=== PATIENT | female | born 1990 | race Caucasian/White ===

== ENCOUNTER 2021-12-20 17:08 | Inpatient (IN) ==
[2021-12-20 17:56] LABS: Basophils # (auto) 0.06 K/uL (0-0.2); Basophils % (auto) 0.7 %; Eosinophils % (auto) 1.1 %; Hematocrit (blood only) 45.1 % (34.1-44.9); Hemoglobin 15.3 g/dl (12.0-16.0); Immature Granulocytes # (auto) 0.08 K/uL (0.00-0.02); Immature Granulocytes % (auto) 0.9 %; Lymphocytes # (auto) 1.69 K/uL (1.2-3.4); Lymphocytes % (auto) 18.8 %; Mean Corpuscular Hemoglobin 30.2 pg (25.0-34.0); Mean Corpuscular Hgb Conc 33.9 g/dL (32.0-36.0); Mean Platelet Volume 9.4 fL (9.4-12.3); Monocytes % (auto) 4.5 %; Neutrophils # (auto) 6.64 K/uL (1.4-6.5); Platelet Count 339 K/uL (130-400); RDW Coefficient of Variation 12.3 % (11.5-14.5); RDW Standard Deviation 39.9 fL (36.4-46.3); Red Blood Count 5.07 M/uL (3.93-5.22); White Blood Count 8.97 K/ul (4.8-10.8)
[2021-12-20 17:57] LABS: Appearance Urine Clear (Clear); Bilirubin Urine Negative (Negative); Blood Urine Negative (Negative); Color Urine Yellow; Glucose Urine UA Negative (Negative); Ketones Urine Negative (Negative); Leukocyte Esterase Urine Negative (Negative); Nitrite Urine Negative (Negative); Protein Urine Negative (Negative); Specific Gravity Urine 1.012 (1.000-1.030); Urobilinogen Urine Negative (Negative)
[2021-12-20] MEDS ORDERED: LORazepam 1 MG TAB SL STA (18:14)
--- NOTE | 2021-12-20 18:14 | Emergency Department Note ---
Impression & Plan Mood disorder, Suicidal ideation, Alcohol abuse ED Provider Note NAME: KALPANA ZEE AGE: 31 SEX: F : 1990 ARRIVES VIA: Walk-In INFORMANT: Patient ED PROVIDER(S): Waylon Peguero DO CHIEF COMPLAINT: SI HPI: Patient is a 31-year-old female who presents to ER the ER for suicidal ideations with a plan to overdose on medications to kill her self. Patient notes that she has been having worsening mental status for the past 2 weeks. 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 She does have a history of bipolar disorder. She is taking her medications. She drinks 8 beers on Sunday. During the week for the past 2 weeks she has been having about 2-3 beers a day otherwise. No other exacerbating or remitting factors. She does want to come in for help. ROS: See above HPI for pertinent positives & negatives. A total of 10 systems reviewed and were otherwise negative. PAST MEDICAL HISTORY:See Below PAST SURGICAL HISTORY:See Below FAMILY HISTORY:See Below SOCIAL HISTORY:See Below HOME MEDICATIONS:See Below ALLERGIES:See Below VITALS:See Below PHYSICAL EXAMINATION: GENERAL: Sitting up in bed, alert, well appearing, well nourished, no distress, non-toxic EYE EXAM: normal conjunctiva. OROPHARYNX: no exudate, no erythema, lips, buccal mucosa, and tongue normal and mucous membranes are moist NECK: supple, no nuchal rigidity, no adenopathy, non-tender LUNGS: Clear to auscultation. Normal chest wall mechanics HEART: no murmurs, S1 normal and S2 normal ABDOMEN: abdomen soft, non-tender, normo-active bowel sounds, no masses, no rebound or guarding. UPPER EXTREMITIES: upper extremities are grossly normal. LOWER EXTREMITIES: No pitting edema. NEURO EXAM: Normal sensorium, cranial nerves II-XII grossly intact, normal speech, no gross weakness of arms, no gross weakness of legs. PSYCH: Admits to suicidal ideations with a plan to overdose MEDICAL DECISION MAKING: Patient is a 31-year-old female who presents ER for suicidal ideations with a plan to kill her self. CBC along with BMP was obtained and was unremarkable. LFTs bilirubin and TSH was unremarkable. UA was clean. was negative. Tox was negative. Alcohol was negative. COVID was negative. Patient was given oral Ativan. Updated bedside patient was admitted to [address] 201 with suicidal ideations. Triage Nursing notes reviewed. Limited review of prior medical records performed Vital Signs: reviewed and remarkable for HTN Differential diagnosis: Mood disorder, infection, hypoglycemia, electrolyte abnormalities, cardiac sources, intracerebral event, toxicologic, trauma, neurologic, as well as other pathologies. ER treatment provided: See below Diagnostics interpreted by me: ECG: none Cardiac Monitoring: An order was placed for continuous cardiac monitoring. The monitor shows a rate of 80 with sinus rhythm. Laboratory studies: As stated above and show below. Imaging studies: See below Consultation(s): none Procedures: none Critical Care: None Past Med/Surg History Social History Smoking Status: Never smoker Preferred Language: Setswana Communication Ability: Effective Truant Officer Required: No Beliefs That Will Affect Care: None Feels Safe at Home: Yes Assistive Devices: None Allergies Allergies Allergy/AdvReac Type Severity Reaction Status Date / Time peanut Allergy Severe ANAPHYLAXIS Verified 12/20/21 20:21 Home Meds Home Medications Medication Instructions Recorded Confirmed budesonide-formoterol HFA 80 2 puff inhalation BID PRN 12/20/21 12/20/21 mcg-4.5 mcg/actuation aerosol Shortness Of Breath Or Wheezing inhaler (Symbicort) bupropion HCl 300 mg 24 hr tablet, 300 mg PO QAM 12/20/21 12/20/21 extended release (Wellbutrin XL) cholecalciferol (vitamin D3) 125 125 mcg PO DAILY 12/20/21 12/20/21 mcg (5,000 unit) tablet (Vitamin D3) lamotrigine 200 mg tablet 200 mg PO DAILY 12/20/21 12/20/21 (Lamictal) lithium carbonate 450 mg 450 mg PO HS 12/20/21 12/20/21 tablet,extended release valbenazine 80 mg capsule 80 mg PO DAILY 12/20/21 12/20/21 Results & Data (ED) Vital Signs Vital Signs - 24 hr 12/20/21 17:21 12/20/21 20:08 Temperature 36.5 C Temperature Source Temporal Artery Scan Pulse Rate 96 H Pulse Rate [Apical] 90 Pulse Rhythm Regular Pulse Strength Normal Respiratory Rate 16 16 Respiratory Effort / Characteristics Non-Labored Spontaneous Non-Labored Respiratory Depth Normal Normal Blood Pressure 154/103 H Blood Pressure [Left Arm] 148/95 H Blood Pressure Mean 120 Blood Pressure Mean [Left Arm] 112 Pulse Oximetry 99 97 Oxygen Delivery Method Room Air Room Air Sepsis Recent Fever Within 48 Hours No Sepsis New/Unexplained Change in Mental Status No Sepsis Action Taken by Nursing No Action Required Laboratory Data Result diagrams: 12/20/21 17:40 12/20/21 17:40 Lab Results 12/20/21 12/20/21 12/20/21 Range/Units 17:30 17:30 17:30 WBC (4.8-10.8) K/ul RBC (3.93-5.22) M/uL Hgb (12.0-16.0) g/dl Hct (34.1-44.9) % MCV (80.0-100.0) fL MCH (25.0-34.0) pg MCHC (32.0-36.0) g/dL RDW Std Deviation (36.4-46.3) fL RDW Coeff of Dada (11.5-14.5) % Plt Count (130-400) K/uL MPV (9.4-12.3) fL Immature Gran % (Auto) % Neut % (Auto) % Lymph % (Auto) % [place] % (Auto) % Eos % (Auto) % Baso % (Auto) % Neut # (Auto) (1.4-6.5) K/uL Lymph # (Auto) (1.2-3.4) K/uL [place] # (Auto) (0.24-0.82) K/uL Eos # (Auto) (0-0.50) K/uL Baso # (Auto) (0-0.2) K/uL Immature Gran # (Auto) (0.00-0.02) K/uL Sodium (136-145) mmol/L Potassium (3.5-5.1) mmol/L Chloride (98-107) mmol/L Carbon Dioxide (21-32) mmol/L Anion Gap (3-11) BUN (6-23) mg/dl Creatinine (0.6-1.2) mg/dl Est Cr Clr Drug Dosing ml/min Est GFR ( Amer) ml/min Est GFR (Non-Af Amer) ml/min BUN/Creatinine Ratio (10-20) Glucose (70-99(Fasting)) mg/dl Calcium (8.5-10.1) mg/dl Total Bilirubin (0.2-1.0) mg/dl AST (13-39) U/L ALT (7-52) U/L Alkaline Phosphatase (34-104) U/L Total Protein (6.0-8.3) gm/dl Albumin (3.4-5.0) gm/dl Globulin (2.5-4.0) gm/dl Albumin/Globulin Ratio (0.9-2) TSH (0.300-4.500) uIu/ml Urine Color Yellow Urine Appearance Clear (Clear) Urine pH 6.0 (4.5-7.5) Ur Specific [place] 1.012 (1.000-1.030) Urine Protein Negative (Negative) Urine Glucose (UA) Negative (Negative) Urine Ketones Negative (Negative) Urine Blood Negative (Negative) Urine Nitrite Negative (Negative) Urine Bilirubin Negative (Negative) Urine Urobilinogen Negative (Negative) Ur Leukocyte Esterase Negative (Negative) POC Ur Test NEG (NEG) Salicylates (3.0-30) mg/dl Urine Opiates Screen (Neg) Ur Methadone, Qual (Neg) Acetaminophen (10-30) ug/ml Urine Barbiturates (Neg) Ur Phencyclidine (PCP) (Neg) U Amphetamin/Meth Scrn (Neg) MDMA (Ecstasy) Screen (Neg) U Benzodiazepines Scrn (Neg) Ur Cocaine Metabolite (Neg) U Marijuana (THC) Screen (Neg) Ethyl Alcohol mg/dL (<10.0) mg/dl SARS-CoV-2, RNA, NAAT NEGATIVE (NEGATIVE) 12/20/21 12/20/21 12/20/21 Range/Units 17:33 17:37 17:40 WBC 8.97 (4.8-10.8) K/ul RBC 5.07 (3.93-5.22) M/uL Hgb 15.3 (12.0-16.0) g/dl Hct 45.1 H (34.1-44.9) % MCV 89.0 (80.0-100.0) fL MCH 30.2 (25.0-34.0) pg MCHC 33.9 (32.0-36.0) g/dL RDW Std Deviation 39.9 (36.4-46.3) fL RDW Coeff of Dada 12.3 (11.5-14.5) % Plt Count 339 (130-400) K/uL MPV 9.4 (9.4-12.3) fL Immature Gran % (Auto) 0.9 % Neut % (Auto) 74.0 % Lymph % (Auto) 18.8 % [place] % (Auto) 4.5 % Eos % (Auto) 1.1 % Baso % (Auto) 0.7 % Neut # (Auto) 6.64 H (1.4-6.5) K/uL Lymph # (Auto) 1.69 (1.2-3.4) K/uL [place] # (Auto) 0.40 (0.24-0.82) K/uL Eos # (Auto) 0.10 (0-0.50) K/uL Baso # (Auto) 0.06 (0-0.2) K/uL Immature Gran # (Auto) 0.08 H (0.00-0.02) K/uL Sodium (136-145) mmol/L Potassium (3.5-5.1) mmol/L Chloride (98-107) mmol/L Carbon Dioxide (21-32) mmol/L Anion Gap (3-11) BUN (6-23) mg/dl Creatinine (0.6-1.2) mg/dl Est Cr Clr Drug Dosing ml/min Est GFR ( Amer) ml/min Est GFR (Non-Af Amer) ml/min BUN/Creatinine Ratio (10-20) Glucose (70-99(Fasting)) mg/dl Calcium (8.5-10.1) mg/dl Total Bilirubin (0.2-1.0) mg/dl AST (13-39) U/L ALT (7-52) U/L Alkaline Phosphatase (34-104) U/L Total Protein (6.0-8.3) gm/dl Albumin (3.4-5.0) gm/dl Globulin (2.5-4.0) gm/dl Albumin/Globulin Ratio (0.9-2) TSH (0.300-4.500) uIu/ml Urine Color Urine Appearance (Clear) Urine pH (4.5-7.5) Ur Specific Lupton (1.000-1.030) Urine Protein (Negative) Urine Glucose (UA) (Negative) Urine Ketones (Negative) Urine Blood (Negative) Urine Nitrite (Negative) Urine Bilirubin (Negative) Urine Urobilinogen (Negative) Ur Leukocyte Esterase (Negative) POC Ur Test (NEG) Salicylates (3.0-30) mg/dl Urine Opiates Screen Neg (Neg) Ur Methadone, Qual Neg (Neg) Acetaminophen (10-30) ug/ml Urine Barbiturates Neg (Neg) Ur Phencyclidine (PCP) Neg (Neg) U Amphetamin/Meth Scrn Neg (Neg) MDMA (Ecstasy) Screen Pos H (Neg) U Benzodiazepines Scrn Neg (Neg) Ur Cocaine Metabolite Neg (Neg) U Marijuana (THC) Screen Neg (Neg) Ethyl Alcohol mg/dL < 10.0 (<10.0) mg/dl SARS-CoV-2, RNA, NAAT (NEGATIVE) 12/20/21 12/20/21 12/20/21 Range/Units 17:40 17:40 17:40 WBC (4.8-10.8) K/ul RBC (3.93-5.22) M/uL Hgb (12.0-16.0) g/dl Hct (34.1-44.9) % MCV (80.0-100.0) fL MCH (25.0-34.0) pg MCHC (32.0-36.0) g/dL RDW Std Deviation (36.4-46.3) fL RDW Coeff of Dada (11.5-14.5) % Plt Count (130-400) K/uL MPV (9.4-12.3) fL Immature Gran % (Auto) % Neut % (Auto) % Lymph % (Auto) % [place] % (Auto) % Eos % (Auto) % Baso % (Auto) % Neut # (Auto) (1.4-6.5) K/uL Lymph # (Auto) (1.2-3.4) K/uL [place] # (Auto) (0.24-0.82) K/uL Eos # (Auto) (0-0.50) K/uL Baso # (Auto) (0-0.2) K/uL Immature Gran # (Auto) (0.00-0.02) K/uL Sodium 140 (136-145) mmol/L Potassium 3.7 (3.5-5.1) mmol/L Chloride 108 H (98-107) mmol/L Carbon Dioxide 23 (21-32) mmol/L Anion Gap 9 (3-11) BUN 9 (6-23) mg/dl Creatinine 1.09 (0.6-1.2) mg/dl Est Cr Clr Drug Dosing 78.7 ml/min Est GFR ( Amer) 78.9 ml/min Est GFR (Non-Af Amer) 68.1 ml/min BUN/Creatinine Ratio 8.3 L (10-20) Glucose 95 (70-99(Fasting)) mg/dl Calcium 9.6 (8.5-10.1) mg/dl Total Bilirubin 0.5 (0.2-1.0) mg/dl AST 16 (13-39) U/L ALT 14 (7-52) U/L Alkaline Phosphatase 91 (34-104) U/L Total Protein 7.5 (6.0-8.3) gm/dl Albumin 4.8 (3.4-5.0) gm/dl Globulin 2.7 (2.5-4.0) gm/dl Albumin/Globulin Ratio 1.8 (0.9-2) TSH 3.303 (0.300-4.500) uIu/ml Urine Color Urine Appearance (Clear) Urine pH (4.5-7.5) Ur Specific Lu[place] (1.000-1.030) Urine Protein (Negative) Urine Glucose (UA) (Negative) Urine Ketones (Negative) Urine Blood (Negative) Urine Nitrite (Negative) Urine Bilirubin (Negative) Urine Urobilinogen (Negative) Ur Leukocyte Esterase (Negative) POC Ur Test (NEG) Salicylates < 3.0 L (3.0-30) mg/dl Urine Opiates Screen (Neg) Ur Methadone, Qual (Neg) Acetaminophen < 3 L (10-30) ug/ml Urine Barbiturates (Neg) Ur Phencyclidine (PCP) (Neg) U Amphetamin/Meth Scrn (Neg) MDMA (Ecstasy) Screen (Neg) U Benzodiazepines Scrn (Neg) Ur Cocaine Metabolite (Neg) U Marijuana (THC) Screen (Neg) Ethyl Alcohol mg/dL (<10.0) mg/dl SARS-CoV-2, RNA, NAAT (NEGATIVE) Administered Medications Discontinued Medications [place] Carbonate ([place] Carbonate 450 Mg Tabcr) 450 mg PO NOW STA Stop: 12/20/21 23:06 Last Admin: 12/20/21 23:37 Dose: 450 mg Documented By: TK Lorazepam (Lorazepam 1 Mg Tab) 1 mg SL NOW STA Stop: 12/20/21 18:15 Last Admin: 12/20/21 18:37 Dose: 1 mg Documented By: MAHSA Lorazepam (Lorazepam 1 Mg Tab) 1 mg PO ONE PRN; Protocol PRN Reason: EtoH Withdrawal AWSS 6,7,8,9,10 Last Admin: 12/20/21 22:32 Dose: 1 mg Documented By: RB Discharge Plan Visit Data Chief Complaint: Mental Health Evaluation Stated Complaint: HAVING SUCIDAL THOUGHTS ED Provider: Waylon Peguero Discharge Problem: Mood disorder, Suicidal ideation, Alcohol abuse Patient Disposition: Admitted As Inpatient Discharge Instructions Interventions: ED Discharge Assessment Last Done: 12/20/21 21:45
[2021-12-20 18:25] LABS: Albumin Globulin Ratio 1.8 (0.9-2); Albumin Level 4.8 gm/dl (3.4-5.0); BUN Creatinine Ratio 8.3 (10-20); Bilirubin,Total 0.5 mg/dl (0.2-1.0); Calcium 9.6 mg/dl (8.5-10.1); Creatinine Clr Calc Pharmacy 78.7 ml/min; Est GFR (African American) 78.9 ml/min; Est GFR (Non-African American) 68.1 ml/min; Globulin 2.7 gm/dl (2.5-4.0); Potassium 3.7 mmol/L (3.5-5.1); Total Protein 7.5 gm/dl (6.0-8.3)
[2021-12-20 18:28] LABS: Acetaminophen < 3 ug/ml (10-30); Salicylate < 3.0 mg/dl (3.0-30)
[2021-12-20 18:39] LABS: Amphetamines+Metham, Urine Neg (Neg); Barbiturates, Urine Neg (Neg); Benzodiazepine, Urine Neg (Neg); Cocaine, Urine Neg (Neg); MDMA (Ecstacy), Urine Pos (Neg); Methadone, Urine Neg (Neg); Opiate, Urine Neg (Neg); Phencyclidine, Urine Neg (Neg)
[2021-12-20] MEDS ORDERED: hydrOXYzine HCl 25 MG TAB PO PRN (20:31)
[2021-12-20] MEDS ORDERED: ALUMINUM/MAGNESIUM SUSP 30 ML UDC PO PRN (20:31)
[2021-12-20] MEDS ORDERED: ACETAMINOPHEN 325 MG TAB PO PRN (20:31)
[2021-12-20] MEDS ORDERED: MAGNESIUM HYDROXIDE SUSP 30 ML UDC PO PRN (20:31)
[2021-12-20] MEDS ORDERED: SODIUM CHLORIDE 0.65% NA SOLN 45 ML (OCEAN) PRN (20:31)
[2021-12-20] MEDS ORDERED: BISMUTH SUBSALICYLATE LIQD 236 ML PO PRN (20:31)
[2021-12-20] MEDS ORDERED: LORazepam 1 MG TAB PO PRN ×4 (21:58)
[2021-12-20] MEDS ORDERED: Ativan PO Alcohol Withdrawal--Active Protocol PO PRN (21:58)
[2021-12-20] MEDS ORDERED: FLUARIX QUADRIVALENT 0.5 ML SYR IM ONE (22:07)
[2021-12-20] MEDS ORDERED: LITHIUM CARBONATE 450 MG TABCR PO SCH (23:04)
[2021-12-20] MEDS ORDERED: LITHIUM CARBONATE 450 MG TABCR PO STA (23:05)
[2021-12-21] MEDS: lamoTRIgine 100 MG TAB PO SCH (09:57)
[2021-12-21] MEDS: buPROPion XL 300 MG TABCR PO SCH (09:57)
[2021-12-21] MEDS: CHOLECALCIFEROL 5,000 UNITS 125 MCG TAB PO SCH (09:57)
[2021-12-21 11:22] LABS: Chol HDL Ratio 3.7 (0-5)
--- NOTE | 2021-12-21 11:48 | History & Physical ---
Date of Service December 21, 2021 Impression / Recommendations Impression 31 yo female with hx of prior suicide attempt, mood lability with excessive alcohol use consistent with bipolar disorder, with presentation complicated by Tourette's with some associated anxiety/OCD traits. She is currently depressed and at significant risk of alcohol withdrawal (AUDIT score 30, scored on AWSS). She has no hx of seizures or withdrawal delirium. (1) Bipolar 2 disorder: (2) Alcohol use disorder: (3) Tourettes disorder: Plan The patient was admitted to the [facility] ([facility]) on q15 min checks (behavioral with suicide precautions) for safety. The patient will participate in group, recreational, and milieu therapies and will be offered additional individual and family sessions as clinically appropriate. Risks/benefits/alternatives were reviewed re: her current medications. Will continue current meds (lamictal, lithium, Wellbutrin) with understanding that would benefit from modified loading procotol of Neurontin 600 mg TID (hold for excessive sedation) and consideration for Revia further into stay. She seemed ambivalent re: the latter. [place] level is still pending but likely to be subtherapeutic given total daily dose. Dose had been higher in the past but doctor reportedly agreed to decrease due to tremor. The patient's AUDIT score suggests problematic drinking ([place] WHO). Brief intervention was offered and accepted. Intervention was greater than 5 min in length and included assessing readiness to quit, advice on how to reduce or abstain from alcohol, and to set a specific goal for this hospitalization. stoneworker will also assist in anticipating barriers to sobriety and in problem-solving for solutions to those problems while arranging for referral to appropriate treatment. The patient is in contemplation stage with regards to transtheoretical model of change. The patient is advised to decrease alcohol consumption due to depressant effects and risk of interaction with prescription medications. 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 Chief Complaint "Fall is a mixed bag and I drink alot which probably doesn't help". History of Present Illness Patient states that her stress has been increasing over past few weeks following a "great summer". She went from a positive outlook and visiting friends in [place] to a new elementary school. 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 She is attending work and stays until her grading/prep is finished for separation between home and school but also as she drinks heavily outside of work. She reported this time of year drinking at least 30 beers a week with additional shots on weekends, always having 8 beers plus per football game she is watching. She is now drinking "at least" 3-4 beers on weeknights. She is not particularly interested in abstaining from ETOH all together but adds that would like to cut back as knows it fuels her depression, interferes with sleep and weight loss. She minimizes any impact on her work/focus but had to leave work early yesterday due to seek assessment. She drinks at [employer] or often by herself. She struggles to manage her suicidal thoughts outside of the structure of work and just felt like "everything is going downhill fast" and sought treatment before acting on any thoughts to OD. She is aware that her lithium can be dangerous in OD. She feels her medications have "done OK" for her mood but also that "I can have good days and bad days on or off medication." She is interested in estabilishing with a local provider. She denies any recent manic symptoms. She states that she was diagnosed with bipolar disorder in 2018 as she was drinking heavily and "very" sexually active soon after a break-up and relocation out of state "to a place I didn't know anyone" within like 2 weeks of the engagement ending. She denied any hx of psychosis or significant insomnia, etc. it sounds like her alcohol use may have been higher in the past as her longest period of sobriety was 2 months in 2019 when she was prescribed Antabuse. She is prescribed Ingrezza for Tourette's, mainly throat/face jerking, hx of grunting/throat clear. She reports having some associated OCD--radio needs set at certain levels in the car, harder to redirect intrusive thoughts. Past Psychiatric History Current Psychiatric Diagnosis: mood disorder, suicidal ideation, bipolar disorder [facility]: [facility], Dr. Luna-telehealth with [facility] Previous Psych Admissions: 2018 [facility] following a suicide attempt by OD Do You Have Access To A Gun?: No Past Medication Trials: "extensive", reports side effects from various antipsychotics that neurologist tried for her Tourette's--recalls SI on Abilify; will request records. Allergies Allergy/AdvReac Type Severity Reaction Status Date / Time peanut Allergy Severe ANAPHYLAXIS Verified 12/20/21 20:21 Home Medications Medication Instructions Recorded Confirmed Type budesonide-formoterol HFA 80 2 puff inhalation BID PRN 12/20/21 12/20/21 History mcg-4.5 mcg/actuation aerosol Shortness Of Breath Or Wheezing inhaler (Symbicort) bupropion HCl 300 mg 24 hr tablet, 300 mg PO QAM 12/20/21 12/20/21 History extended release (Wellbutrin XL) cholecalciferol (vitamin D3) 125 125 mcg PO DAILY 12/20/21 12/20/21 History mcg (5,000 unit) tablet (Vitamin D3) lamotrigine 200 mg tablet 200 mg PO DAILY 12/20/21 12/20/21 History (Lamictal) lithium carbonate 450 mg 450 mg PO HS 12/20/21 12/20/21 History tablet,extended release valbenazine 80 mg capsule 80 mg PO DAILY 12/20/21 12/20/21 History Family History Family History of: Depression and Alcoholism/Drug Abuse Family Mental Health History Comment: father's side - depression and substance use mother's side - depression Alcohol History Hx of Alcohol Use Over the Past 12 Months: Yes (8-10 beers&couple of shots on weekends, 3-4 beers daily during the wk) AUDIT Total Score: 30 Smoking Use Have You Smoked or Used Tobacco Products in the Last 30 Days: No Smoking Status: Never smoker Substance History Hx of Prescription Med Misuse Over the Past 12 Months: No Hx of Over the Counter Med Misuse Over the Past 12 Months: No Hx of Inhalent Misuse Over the Past 12 Months: No Hx of Organic Substance Use Over the Past 12 Months: No Hx of Illegal Substances/Street Drug Use Over Past 12 Months: No Problems as a Result of Past Substance Use: None Identified Personal History Living Arrangements: Apartment Highest Grade Completed: Graduate School Highest Grade Completed Comment: has Master's degree Marital Status: Single Number Of Children: 0 Beliefs That Will Affect Care: None Current Legal Problems: No Hx Traumatic Life Events: No Patient History Medical History (Updated 12/21/21 @ 12:07 by Masha Brooks MD) Allergy to peanuts (08/28/12) Asthma (08/28/12) Tho de la Tourette's syndrome (08/28/12) Social History Smoking Status: Never smoker Preferred Language: Egyptian Communication Ability: Effective Relay Record Clerk Required: No Beliefs That Will Affect Care: None Feels Safe at Home: Yes Assistive Devices: None Review of Systems Review of Systems: All systems reviewed & are unremarkable except as noted in HPI & below Physical Exam Psychiatric: Orientation: alert and oriented x 3 Apperance: appropriately dressed and appropriately groomed Eye Contact: good eye contact Motor Behavior: + abnormal motor movements (occasional facial/throat motor tic) Speech: normal rate/rhythm/volume of speech Affect: + depressed affect Mood: + depressed mood Thought Process: goal directed thought process Thought Content: reality based without delusions Suicidal Thoughts: denies suicidal plan (on unit) and denies suicidal intent; + reports suicidal thoughts Homicidal Thoughts: denies homicidal thoughts Hallucinations: no auditory hallucinations and no visual hallucinations Cognition: attention grossly intact and language grossly intact Estimated Intelligence: consistent with education level Insight: + limited insight Judgement: + limited judgement Vital Signs (Past 24 Hours): Last Vital Signs Temp 36.5 C 12/21/21 10:11 Pulse 97 H 12/21/21 10:11 Resp 18 12/21/21 10:11 BP 137/92 12/21/21 10:11 Pulse Ox 97 12/20/21 20:08 O2 Del Method 12/20/21 20:08 Exam Statement: A physical exam was performed in the ED by Dr. Peguero for the purposes of medical clearance. I accept that physical as correct and adequate for the purposes of the inpatient physical exam. Results & Data ([facility]) Laboratory Results Laboratory Results - last 24 hr 12/20/21 12/20/21 12/20/21 17:30 17:30 17:30 WBC RBC Hgb Hct MCV MCH MCHC RDW Std Deviation RDW Coeff of Dada Plt Count MPV Immature Gran % (Auto) Neut % (Auto) Lymph % (Auto) [place] % (Auto) Eos % (Auto) Baso % (Auto) Neut # (Auto) Lymph # (Auto) [place] # (Auto) Eos # (Auto) Baso # (Auto) Immature Gran # (Auto) Sodium Potassium Chloride Carbon Dioxide Anion Gap BUN Creatinine Est Cr Clr Drug Dosing Est GFR ( Amer) Est GFR (Non-Af Amer) BUN/Creatinine Ratio Glucose Fasting Glucose Calcium Total Bilirubin AST ALT Alkaline Phosphatase Total Protein Albumin Globulin Albumin/Globulin Ratio Triglycerides Cholesterol LDL Cholesterol, Calc VLDL Cholesterol, Calc HDL Cholesterol Cholesterol/HDL Ratio TSH Urine Color Yellow Urine Appearance Clear Urine pH 6.0 Ur Specific [place] 1.012 Urine Protein Negative Urine Glucose (UA) Negative Urine Ketones Negative Urine Blood Negative Urine Nitrite Negative Urine Bilirubin Negative Urine Urobilinogen Negative Ur Leukocyte Esterase Negative POC Ur Test NEG Salicylates Urine Opiates Screen Ur Methadone, Qual Acetaminophen Urine Barbiturates Ur Phencyclidine (PCP) U Amphetamin/Meth Scrn Urine MDEA MDMA (Ecstasy) Screen MDMA Urine MDMA U Benzodiazepines Scrn [place] Ur Cocaine Metabolite U Marijuana (THC) Screen Ethyl Alcohol mg/dL SARS-CoV-2, RNA, NAAT NEGATIVE 12/20/21 12/20/21 12/20/21 17:33 17:33 17:37 WBC RBC Hgb Hct MCV MCH MCHC RDW Std Deviation RDW Coeff of Dada Plt Count MPV Immature Gran % (Auto) Neut % (Auto) Lymph % (Auto) [place] % (Auto) Eos % (Auto) Baso % (Auto) Neut # (Auto) Lymph # (Auto) [place] # (Auto) Eos # (Auto) Baso # (Auto) Immature Gran # (Auto) Sodium Potassium Chloride Carbon Dioxide Anion Gap BUN Creatinine Est Cr Clr Drug Dosing Est GFR ( Amer) Est GFR (Non-Af Amer) BUN/Creatinine Ratio Glucose Fasting Glucose Calcium Total Bilirubin AST ALT Alkaline Phosphatase Total Protein Albumin Globulin Albumin/Globulin Ratio Triglycerides Cholesterol LDL Cholesterol, Calc VLDL Cholesterol, Calc HDL Cholesterol Cholesterol/HDL Ratio TSH Urine Color Urine Appearance Urine pH Ur Specific [place] Urine Protein Urine Glucose (UA) Urine Ketones Urine Blood Urine Nitrite Urine Bilirubin Urine Urobilinogen Ur Leukocyte Esterase POC Ur Test Salicylates Urine Opiates Screen Neg Ur Methadone, Qual Neg Acetaminophen Urine Barbiturates Neg Ur Phencyclidine (PCP) Neg U Amphetamin/Meth Scrn Neg Urine MDEA Pending MDMA (Ecstasy) Screen Pos H MDMA Pending Urine MDMA Pending U Benzodiazepines Scrn Neg [place] Ur Cocaine Metabolite Neg U Marijuana (THC) Screen Neg Ethyl Alcohol mg/dL < 10.0 SARS-CoV-2, RNA, NAAT 12/20/21 12/20/21 12/20/21 17:40 17:40 17:40 WBC 8.97 RBC 5.07 Hgb 15.3 Hct 45.1 H MCV 89.0 MCH 30.2 MCHC 33.9 RDW Std Deviation 39.9 RDW Coeff of Dada 12.3 Plt Count 339 MPV 9.4 Immature Gran % (Auto) 0.9 Neut % (Auto) 74.0 Lymph % (Auto) 18.8 [place] % (Auto) 4.5 Eos % (Auto) 1.1 Baso % (Auto) 0.7 Neut # (Auto) 6.64 H Lymph # (Auto) 1.69 [place] # (Auto) 0.40 Eos # (Auto) 0.10 Baso # (Auto) 0.06 Immature Gran # (Auto) 0.08 H Sodium 140 Potassium 3.7 Chloride 108 H Carbon Dioxide 23 Anion Gap 9 BUN 9 Creatinine 1.09 Est Cr Clr Drug Dosing 78.7 Est GFR ( Amer) 78.9 Est GFR (Non-Af Amer) 68.1 BUN/Creatinine Ratio 8.3 L Glucose 95 Fasting Glucose Calcium 9.6 Total Bilirubin 0.5 AST 16 ALT 14 Alkaline Phosphatase 91 Total Protein 7.5 Albumin 4.8 Globulin 2.7 Albumin/Globulin Ratio 1.8 Triglycerides Cholesterol LDL Cholesterol, Calc VLDL Cholesterol, Calc HDL Cholesterol Cholesterol/HDL Ratio TSH 3.303 Urine Color Urine Appearance Urine pH Ur Specific [place] Urine Protein Urine Glucose (UA) Urine Ketones Urine Blood Urine Nitrite Urine Bilirubin Urine Urobilinogen Ur Leukocyte Esterase POC Ur Test Salicylates Urine Opiates Screen Ur Methadone, Qual Acetaminophen Urine Barbiturates Ur Phencyclidine (PCP) U Amphetamin/Meth Scrn Urine MDEA MDMA (Ecstasy) Screen MDMA Urine MDMA U Benzodiazepines Scrn [place] Ur Cocaine Metabolite U Marijuana (THC) Screen Ethyl Alcohol mg/dL SARS-CoV-2, RNA, NAAT 12/20/21 12/21/21 12/21/21 17:40 10:25 10:25 WBC RBC Hgb Hct MCV MCH MCHC RDW Std Deviation RDW Coeff of Dada Plt Count MPV Immature Gran % (Auto) Neut % (Auto) Lymph % (Auto) [place] % (Auto) Eos % (Auto) Baso % (Auto) Neut # (Auto) Lymph # (Auto) [place] # (Auto) Eos # (Auto) Baso # (Auto) Immature Gran # (Auto) Sodium Potassium Chloride Carbon Dioxide Anion Gap BUN Creatinine Est Cr Clr Drug Dosing Est GFR ( Amer) Est GFR (Non-Af Amer) BUN/Creatinine Ratio Glucose Fasting Glucose 85 Calcium Total Bilirubin AST ALT Alkaline Phosphatase Total Protein Albumin Globulin Albumin/Globulin Ratio Triglycerides 92 Cholesterol 231 H LDL Cholesterol, Calc 151 VLDL Cholesterol, Calc 18 HDL Cholesterol 62 Cholesterol/HDL Ratio 3.7 TSH Urine Color Urine Appearance Urine pH Ur Specific [place] Urine Protein Urine Glucose (UA) Urine Ketones Urine Blood Urine Nitrite Urine Bilirubin Urine Urobilinogen Ur Leukocyte Esterase POC Ur Test Salicylates < 3.0 L Urine Opiates Screen Ur Methadone, Qual Acetaminophen < 3 L Urine Barbiturates Ur Phencyclidine (PCP) U Amphetamin/Meth Scrn Urine MDEA MDMA (Ecstasy) Screen MDMA Urine MDMA U Benzodiazepines Scrn [place] Pending Ur Cocaine Metabolite U Marijuana (THC) Screen Ethyl Alcohol mg/dL SARS-CoV-2, RNA, NAAT Current Inpatient Medications Current Inpatient Medications: Current Inpatient Medications Acetaminophen (Acetaminophen 325 Mg Tab) 650 mg PO Q4H PRN PRN Reason: Headache or Minor Fever Stop: 01/19/22 20:30 Al Hydrox/Mg Hydrox/Simethicone (Aluminum/Magnesium Susp 30 Ml Udc) 30 ml PO Q4H PRN PRN Reason: GI Upset Stop: 01/19/22 20:30 Bismuth Subsalicylate (Bismuth Subsalicylate Liqd 236 Ml) 15 ml PO PRN PRN PRN Reason: Loose Stool Stop: 01/19/22 20:30 Bupropion HCl (Bupropion Xl 300 Mg Tabcr) 300 mg PO QAM CHERYLE Stop: 01/20/22 09:14 Last Admin: 12/21/21 09:57 Dose: 300 mg Gabapentin (Gabapentin 600 Mg Tab) 600 mg PO TID CHERYLE Stop: 01/20/22 11:19 Hydroxyzine HCl (Hydroxyzine Hcl 25 Mg Tab) 50 mg PO HSZ PRN PRN Reason: Insomnia Stop: 01/19/22 20:30 Hydroxyzine HCl (Hydroxyzine Hcl 25 Mg Tab) 25 mg PO Q4H PRN PRN Reason: Anxiety Stop: 01/19/22 20:30 Lamotrigine (Lamotrigine 100 Mg Tab) 200 mg PO DAILY CHERYLE Stop: 01/20/22 09:14 Last Admin: 12/21/21 09:57 Dose: 200 mg [place] Carbonate ([place] Carbonate 450 Mg Tabcr) 450 mg PO HS CHERYLE Stop: 01/20/22 21:59 Lorazepam (Lorazepam 1 Mg Tab) 1 mg PO UD PRN; Protocol PRN Reason: EtOH Withdrawal AWSS Score 6,7 Stop: 01/19/22 21:57 Lorazepam (Lorazepam 1 Mg Tab) 3 mg PO ONCE PRN; Protocol PRN Reason: EtOH Withdrawal AWSS Score 10 & above Lorazepam (Lorazepam 1 Mg Tab) 2 mg PO UD PRN; Protocol PRN Reason: EtOH Withdrawal AWSS Score 8,9 Stop: 01/19/22 21:57 Magnesium Hydroxide (Magnesium Hydroxide Susp 30 Ml Udc) 30 ml PO DAILY PRN PRN Reason: Constipation Stop: 01/19/22 20:30 Sodium Chloride (Sodium Chloride 0.65% Na Soln 45 Ml ([place])) 1 - 2 sprays NA PRN PRN PRN Reason: Nasal Dryness/Congestion Stop: 01/19/22 20:30 Valbenazine (Valbenazine Tosylate 80mg Capsule) 1 each PO DAILY CHERYLE Stop: 01/20/22 11:59 Vitamin D (Cholecalciferol 5,000 Units 125 Mcg Tab) 5,000 units PO DAILY CHERYLE Stop: 01/20/22 08:59 Last Admin: 12/21/21 09:57 Dose: 5,000 units
[2021-12-21] MEDS: GABAPENTIN 600 MG TAB PO SCH ×3 (11:50→20:28)
[2021-12-21] MEDS ORDERED: VALBENAZINE TOSYLATE 80 MG PO SCH (12:00)
[2021-12-21] MEDS: LITHIUM CARBONATE 450 MG TABCR PO SCH (20:28)
[2021-12-21] MEDS ORDERED: LITHIUM CARBONATE 450 MG TABCR PO SCH (21:00)
[2021-12-22] MEDS: buPROPion XL 300 MG TABCR PO SCH (08:44)
[2021-12-22] MEDS: GABAPENTIN 600 MG TAB PO SCH ×3 (08:44→21:31)
[2021-12-22] MEDS: CHOLECALCIFEROL 5,000 UNITS 125 MCG TAB PO SCH (08:44)
[2021-12-22] MEDS: lamoTRIgine 100 MG TAB PO SCH (08:44)
--- NOTE | 2021-12-22 12:57 | Psychiatric Progress Note ---
Date of Service December 22, 2021 Impression / Recommendations Impression 31 yo female with hx of prior suicide attempt, mood lability with excessive alcohol use consistent with bipolar disorder, with presentation complicated by Tourette's with some associated anxiety/OCD traits. She is currently depressed and at significant risk of alcohol withdrawal (AUDIT score 30, scored on AWSS). She has no hx of seizures or withdrawal delirium. 12/22/21: more depressed today, mainly as facing discussions about ETOH use and ongoing abstinence where there is clear psychological dependence on ETOH. (1) Bipolar 2 disorder: (2) Alcohol use disorder: (3) Tourettes disorder: Plan 12/22/21: The patient agrees to trial of Revia following rehab discussion. Needs time to think about the latter. Discussion included but not limited to need for liver monitoring, etc. Agreed to partial titration of lithium and states that she did do better mood cavazos on higher dose and "I don't care about tremor" right now. Reviewed that tremor is typically treatable with beta julieta but may have also been withdrawal. No evidence of sedation with Neurontin but feels that Ingrezza should be at hs. 12/21/21: The patient was admitted to the [facility] ([facility] mental [facility] unit) on q15 min checks (behavioral with suicide precautions) for safety. The patient will participate in group, recreational, and milieu therapies and will be offered additional individual and family sessions as clinically appropriate. Risks/benefits/alternatives were reviewed re: her current medications. Will continue current meds (lamictal, lithium, Wellbutrin) with understanding that would benefit from modified loading procotol of Neurontin 600 mg TID (hold for excessive sedation) and consideration for Revia further into stay. She seemed ambivalent re: the latter. [place] level is still pending but likely to be subtherapeutic given total daily dose. Dose had been higher in the past but doctor reportedly agreed to decrease due to tremor. The patient's AUDIT score suggests problematic drinking (Zone III WHO). Brief intervention was offered and accepted. Intervention was greater than 5 min in length and included assessing readiness to quit, advice on how to reduce or abstain from alcohol, and to set a specific goal for this hospitalization. yard warehouse worker will also assist in anticipating barriers to sobriety and in problem-solving for solutions to those problems while arranging for referral to appropriate treatment. The patient is in contemplation stage with regards to transtheoretical model of change. The patient is advised to decrease alcohol consumption due to depressant effects and risk of interaction with prescription medications. 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 Chief Complaint "I'm feeling worse since yesterday afternoon." Review of Systems Sleep Information Total Hours of Sleep: 8 Sleep Comments: pt on q-15 minute checks Meal Information Percent Meal Consumed - Breakfast: 50 Percent Meal Consumed - Lunch: 95 Percent Meal Consumed - Dinner: 100 Subjective Subjective Patient was seen & assessed and interval progress reviewed with nursing and social work. Patient reports feeling triggered by group where Etoh use is discussed as "I don't want to stop drinking totally" yet admits that she had significant cravings and that it's an unhealthy coping skill. Reviewed complexity of mood vs withdrawal and that best way to treat her depression at this time is decrease ETOH use, ideally through a residential rehab program. 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 She "doesn't want to feel" and is surprised with her level of subjective withdrawal as saw herself as mainly a binge drinker. Physical Exam Psychiatric Orientation: alert and oriented x 3 Apperance: appropriately dressed and appropriately groomed Eye Contact: good eye contact Motor Behavior: no abnormal motor movements Speech: normal rate/rhythm/volume of speech Affect: + depressed affect Mood: + depressed mood Thought Process: goal directed thought process Thought Content: reality based without delusions Suicidal Thoughts: denies suicidal plan (on unit) and denies suicidal intent; + reports suicidal thoughts Homicidal Thoughts: denies homicidal thoughts Hallucinations: no auditory hallucinations and no visual hallucinations Cognition: attention grossly intact and language grossly intact Estimated Intelligence: consistent with education level Insight: + limited insight Judgement: + limited judgement Vital Signs (Past 24 Hours) Last Vital Signs Temp 36.6 C 12/22/21 10:18 Pulse 91 H 12/22/21 10:18 Resp 16 12/22/21 10:18 BP 128/86 12/22/21 10:18 Pulse Ox 97 12/20/21 20:08 O2 Del Method 12/20/21 20:08 Results & Data ([facility]) Laboratory Results Laboratory Results - last 24 hr 12/21/21 10:25 [place] 0.5 L Current Inpatient Medications Current Inpatient Medications: Current Inpatient Medications Acetaminophen (Acetaminophen 325 Mg Tab) 650 mg PO Q4H PRN PRN Reason: Headache or Minor Fever Stop: 01/19/22 20:30 Al Hydrox/Mg Hydrox/Simethicone (Aluminum/Magnesium Susp 30 Ml Udc) 30 ml PO Q4H PRN PRN Reason: GI Upset Stop: 01/19/22 20:30 Bismuth Subsalicylate (Bismuth Subsalicylate Liqd 236 Ml) 15 ml PO PRN PRN PRN Reason: Loose Stool Stop: 01/19/22 20:30 Bupropion HCl (Bupropion Xl 300 Mg Tabcr) 300 mg PO QAM CHERYLE Stop: 01/20/22 09:14 Last Admin: 12/22/21 08:44 Dose: 300 mg Gabapentin (Gabapentin 600 Mg Tab) 600 mg PO TID CHERYLE Stop: 01/20/22 11:19 Last Admin: 12/22/21 08:44 Dose: 600 mg Hydroxyzine HCl (Hydroxyzine Hcl 25 Mg Tab) 50 mg PO HSZ PRN PRN Reason: Insomnia Stop: 01/19/22 20:30 Hydroxyzine HCl (Hydroxyzine Hcl 25 Mg Tab) 25 mg PO Q4H PRN PRN Reason: Anxiety Stop: 01/19/22 20:30 Lamotrigine (Lamotrigine 100 Mg Tab) 200 mg PO DAILY CHERYLE Stop: 01/20/22 09:14 Last Admin: 12/22/21 08:44 Dose: 200 mg [place] Carbonate ([place] Carbonate 450 Mg Tabcr) 450 mg PO HS CHERYLE Stop: 01/20/22 21:59 Last Admin: 12/21/21 20:28 Dose: 450 mg [place] Carbonate ([place] Carbonate 300 Mg Tab) 150 mg PO QAM CHERYLE Stop: 01/21/22 12:59 Lorazepam (Lorazepam 1 Mg Tab) 1 mg PO UD PRN; Protocol PRN Reason: EtOH Withdrawal AWSS Score 6,7 Stop: 01/19/22 21:57 Lorazepam (Lorazepam 1 Mg Tab) 3 mg PO ONCE PRN; Protocol PRN Reason: EtOH Withdrawal AWSS Score 10 & above Lorazepam (Lorazepam 1 Mg Tab) 2 mg PO UD PRN; Protocol PRN Reason: EtOH Withdrawal AWSS Score 8,9 Stop: 01/19/22 21:57 Magnesium Hydroxide (Magnesium Hydroxide Susp 30 Ml Udc) 30 ml PO DAILY PRN PRN Reason: Constipation Stop: 01/19/22 20:30 Naltrexone HCl (Naltrexone Hcl 50 Mg Tab) 25 mg PO UD CHERYLE Stop: 01/21/22 12:09 Sodium Chloride (Sodium Chloride 0.65% Na Soln 45 Ml ([place])) 1 - 2 sprays NA PRN PRN PRN Reason: Nasal Dryness/Congestion Stop: 01/19/22 20:30 Valbenazine (Valbenazine Tosylate 1 Each) 1 each PO HS CHERYLE Stop: 01/21/22 21:59 Vitamin D (Cholecalciferol 5,000 Units 125 Mcg Tab) 5,000 units PO DAILY CHERYLE Stop: 01/20/22 08:59 Last Admin: 12/22/21 08:44 Dose: 5,000 units Mental Health & Subst Abuse Tx Therapist Name of Therapist: [facility] Sales Consultant Name of Retirement Sales Consultant: None Post Discharge Appointments Primary Care Physician Name Of Family Doctor: Dr Kowalski
[2021-12-22] MEDS: LITHIUM CARBONATE 300 MG TAB PO SCH (13:55)
[2021-12-22] MEDS: NALTREXONE HCL 50 MG TAB PO SCH (13:56)
[2021-12-22] MEDS: LITHIUM CARBONATE 450 MG TABCR PO SCH (21:31)
[2021-12-22] MEDS: VALBENAZINE TOSYLATE PO SCH (21:32)
[2021-12-23] MEDS: NALTREXONE HCL 50 MG TAB PO SCH (09:10)
[2021-12-23] MEDS: buPROPion XL 300 MG TABCR PO SCH (09:11)
[2021-12-23] MEDS: lamoTRIgine 100 MG TAB PO SCH (09:12)
[2021-12-23] MEDS: LITHIUM CARBONATE 300 MG TAB PO SCH (09:12)
[2021-12-23] MEDS: CHOLECALCIFEROL 5,000 UNITS 125 MCG TAB PO SCH (09:13)
[2021-12-23] MEDS: GABAPENTIN 600 MG TAB PO SCH ×3 (09:13→21:23)
--- NOTE | 2021-12-23 13:11 | Psychiatric Progress Note ---
Date of Service December 23, 2021 Impression / Recommendations Impression 31 yo female with hx of prior suicide attempt, mood lability with excessive alcohol use consistent with bipolar disorder, with presentation complicated by Tourette's with some associated anxiety/OCD traits. She is currently depressed and at significant risk of alcohol withdrawal (AUDIT score 30, scored on AWSS). She has no hx of seizures or withdrawal delirium. 12/23/21: ongoing depression and ambivalence about sobriety (1) Bipolar 2 disorder: (2) Alcohol use disorder: (3) Tourettes disorder: Plan 12/23/21: continue current meds and tx plan, family meeting with mother. 12/22/21: The patient agrees to trial of Revia following rehab discussion. Needs time to think about the latter. Discussion included but not limited to need for liver monitoring, etc. Agreed to partial titration of lithium and states that she did do better mood cavazos on higher dose and "I don't care about tremor" right now. Reviewed that tremor is typically treatable with beta julieta but may have also been withdrawal. No evidence of sedation with Neurontin but feels that Ingrezza should be at hs. 12/21/21: The patient was admitted to the [facility]) on q15 min checks (behavioral with suicide precautions) for safety. The patient will participate in group, recreational, and milieu therapies and will be offered additional individual and family sessions as clinically appropriate. Risks/benefits/alternatives were reviewed re: her current medications. Will continue current meds (lamictal, lithium, Wellbutrin) with understanding that would benefit from modified loading procotol of Neurontin 600 mg TID (hold for excessive sedation) and consideration for Revia further into stay. She seemed ambivalent re: the latter. [place] level is still pending but likely to be subtherapeutic given total daily dose. Dose had been higher in the past but doctor reportedly agreed to decrease due to tremor. The patient's AUDIT score suggests problematic drinking (Zone III WHO). Brief intervention was offered and accepted. Intervention was greater than 5 min in length and included assessing readiness to quit, advice on how to reduce or abstain from alcohol, and to set a specific goal for this hospitalization. bulbs farmworker will also assist in anticipating barriers to sobriety and in problem-solving for solutions to those problems while arranging for referral to appropriate treatment. The patient is in contemplation stage with regards to transtheoretical model of change. The patient is advised to decrease alcohol consumption due to depressant effects and risk of interaction with prescription medications. 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 Chief Complaint "I'm an alcoholic but I really don't want to stop drinking, what will I do with all of my free time?" Review of Systems Sleep Information Total Hours of Sleep: 6.5 Sleep Comments: pt on q-15 minute checks Meal Information Percent Meal Consumed - Breakfast: 100 Percent Meal Consumed - Lunch: 100 Percent Meal Consumed - Dinner: 70 Subjective Subjective Patient was seen & assessed and interval progress reviewed with treatment team. Patient is willing to consider a 2 week rehab (reviewed not typical) but also told work to expect her back next week. She becomes easily overwhelmed when drinking is discussed as can't figure out alternate activities. Denies concerns with med changes at this point. Physical Exam Psychiatric Orientation: alert and oriented x 3 Apperance: appropriately dressed and appropriately groomed Eye Contact: good eye contact Motor Behavior: no abnormal motor movements Speech: normal rate/rhythm/volume of speech Affect: + depressed affect Mood: + depressed mood Thought Process: goal directed thought process Thought Content: reality based without delusions Suicidal Thoughts: denies suicidal plan (on unit) and denies suicidal intent; + reports suicidal thoughts (more passive/intermittent) Homicidal Thoughts: denies homicidal thoughts Hallucinations: no auditory hallucinations and no visual hallucinations Cognition: attention grossly intact and language grossly intact Estimated Intelligence: consistent with education level Insight: + limited insight Judgement: + limited judgement Vital Signs (Past 24 Hours) Last Vital Signs Temp 36.3 C L 10/28/22 10:38 Pulse 83 12/23/21 10:38 Resp 16 12/23/21 10:38 BP 124/82 12/23/21 10:38 Pulse Ox 98 12/22/21 21:51 O2 Del Method 12/23/21 10:38 Results & Data ([facility]) Current Inpatient Medications Current Inpatient Medications: Current Inpatient Medications Acetaminophen (Acetaminophen 325 Mg Tab) 650 mg PO Q4H PRN PRN Reason: Headache or Minor Fever Stop: 01/19/22 20:30 Al Hydrox/Mg Hydrox/Simethicone (Aluminum/Magnesium Susp 30 Ml Udc) 30 ml PO Q4H PRN PRN Reason: GI Upset Stop: 01/19/22 20:30 Bismuth Subsalicylate (Bismuth Subsalicylate Liqd 236 Ml) 15 ml PO PRN PRN PRN Reason: Loose Stool Stop: 01/19/22 20:30 Bupropion HCl (Bupropion Xl 300 Mg Tabcr) 300 mg PO QAM CHERYLE Stop: 01/20/22 09:14 Last Admin: 12/23/21 09:11 Dose: 300 mg Gabapentin (Gabapentin 600 Mg Tab) 600 mg PO TID CHERYLE Stop: 01/20/22 11:19 Last Admin: 12/23/21 09:13 Dose: 600 mg Hydroxyzine HCl (Hydroxyzine Hcl 25 Mg Tab) 50 mg PO HSZ PRN PRN Reason: Insomnia Stop: 01/19/22 20:30 Hydroxyzine HCl (Hydroxyzine Hcl 25 Mg Tab) 25 mg PO Q4H PRN PRN Reason: Anxiety Stop: 01/19/22 20:30 Lamotrigine (Lamotrigine 100 Mg Tab) 200 mg PO DAILY CHERYLE Stop: 01/20/22 09:14 Last Admin: 12/23/21 09:12 Dose: 200 mg [place] Carbonate ([place] Carbonate 450 Mg Tabcr) 450 mg PO HS CHERYLE Stop: 01/20/22 21:59 Last Admin: 12/22/21 21:31 Dose: 450 mg [place] Carbonate ([place] Carbonate 300 Mg Tab) 150 mg PO QAM CHERYLE Stop: 01/21/22 12:59 Last Admin: 12/23/21 09:12 Dose: 150 mg Lorazepam (Lorazepam 1 Mg Tab) 1 mg PO UD PRN; Protocol PRN Reason: EtOH Withdrawal AWSS Score 6,7 Stop: 01/19/22 21:57 Lorazepam (Lorazepam 1 Mg Tab) 3 mg PO ONCE PRN; Protocol PRN Reason: EtOH Withdrawal AWSS Score 10 & above Lorazepam (Lorazepam 1 Mg Tab) 2 mg PO UD PRN; Protocol PRN Reason: EtOH Withdrawal AWSS Score 8,9 Stop: 01/19/22 21:57 Magnesium Hydroxide (Magnesium Hydroxide Susp 30 Ml Udc) 30 ml PO DAILY PRN PRN Reason: Constipation Stop: 01/19/22 20:30 Naltrexone HCl (Naltrexone Hcl 50 Mg Tab) 25 mg PO DAILY CHERYLE Stop: 01/21/22 12:59 Last Admin: 12/23/21 09:10 Dose: 25 mg Sodium Chloride (Sodium Chloride 0.65% Na Soln 45 Ml ([place])) 1 - 2 sprays NA PRN PRN PRN Reason: Nasal Dryness/Congestion Stop: 01/19/22 20:30 Valbenazine (Valbenazine Tosylate 1 Each) 1 each PO HS CHERYLE Stop: 01/21/22 21:59 Last Admin: 12/22/21 21:32 Dose: 1 each Vitamin D (Cholecalciferol 5,000 Units 125 Mcg Tab) 5,000 units PO DAILY CHERYLE Stop: 01/20/22 08:59 Last Admin: 12/23/21 09:13 Dose: 5,000 units Mental Health & Subst Abuse Tx Psychiatrist [facility] Luna Psychiatrist's Date of Appointment with Psychiatrist: 01/16/22 Time of Appointment with Psychiatrist: 50am Psychiatric Appointment Comment: virtual Therapist Name of Therapist: Dion/Tere Therapist's Date of Therapist Appointment: 01/03/22 Time of Therapist Appointment: 4pm Therapy Appointment Comment: [address], [address] [place], [place] Director Channel Name of Director Channel: None Post Discharge Appointments Primary Care Physician Name Of Family Doctor: Mehul Kowalski Provider Appointment Comment: follow up as needed Contact Information Discharge Discharge Address: [address] [place] [address], [place] [address]
[2021-12-23] MEDS: hydrOXYzine HCl 25 MG TAB PO PRN (14:05)
[2021-12-23] MEDS: LITHIUM CARBONATE 450 MG TABCR PO SCH (21:22)
[2021-12-23] MEDS: VALBENAZINE TOSYLATE PO SCH (21:23)
[2021-12-24] MEDS ORDERED: NALTREXONE HCL 50 MG TAB PO SCH (09:00)
[2021-12-24] MEDS: LITHIUM CARBONATE 300 MG TAB PO SCH (09:04)
[2021-12-24] MEDS: GABAPENTIN 600 MG TAB PO SCH (09:05)
[2021-12-24] MEDS: buPROPion XL 300 MG TABCR PO SCH (09:05)
[2021-12-24] MEDS: lamoTRIgine 100 MG TAB PO SCH (09:05)
[2021-12-24] MEDS: CHOLECALCIFEROL 5,000 UNITS 125 MCG TAB PO SCH (09:05)
[2021-12-24] MEDS ORDERED: NALTREXONE HCL 50 MG TAB PO ONE (11:22)
[2021-12-24] MEDS ORDERED: buPROPion XL 150 MG TABCR PO ONE (11:30)
[2021-12-24] MEDS ORDERED: GABAPENTIN 600 MG TAB PO SCH (14:00)
[2021-12-24] MEDS: GABAPENTIN 400 MG CAP PO SCH ×2 (14:16→21:23)
--- NOTE | 2021-12-24 14:29 | Psychiatric Progress Note ---
Date of Service December 24, 2021 Impression / Recommendations Impression 31 yo female with hx of prior suicide attempt, mood lability with excessive alcohol use consistent with bipolar disorder, with presentation complicated by Tourette's with some associated anxiety/OCD traits. She is currently depressed and at significant risk of alcohol withdrawal (AUDIT score 30, scored on AWSS). She has no hx of seizures or withdrawal delirium. 12/24/21: ongoing depression with anhedonia. Reviewed medication treatment options in detail. She consents to increasing Wellbutrin dose, reviewed side effects including but not limited to: risk of further lowering seizure threshold, potential for hypomania/kylee and potential for increased anxiety. She also consents to further dose titration of naltrexone to target binge drinking/alcohol use disorder. Will begin to taper gabapentin as no signs of acute withdrawal and to minimize risk of respiratory depression as she plans to continue drinking alcohol. (1) Bipolar disorder with severe depression: (2) Bipolar 2 disorder: (3) Alcohol use disorder: (4) Tourettes disorder: Plan 12/24/21: Increase Wellbutrin XL to 450mg qd, increase naltrexone to 100mg qd, decrease gabapentin to 400mg TID 12/23/21: continue current meds and tx plan, family meeting with mother. 12/22/21: The patient agrees to trial of Revia following rehab discussion. Needs time to think about the latter. Discussion included but not limited to need for liver monitoring, etc. Agreed to partial titration of lithium and states that she did do better mood cavazos on higher dose and "I don't care about tremor" right now. Reviewed that tremor is typically treatable with beta julieta but may have also been withdrawal. No evidence of sedation with Neurontin but feels that Ingrezza should be at hs. 12/21/21: The patient was admitted to the [facility] ([facility] mental [facility]) on q15 min checks (behavioral with suicide precautions) for safety. The patient will participate in group, recreational, and milieu therapies and will be offered additional individual and family sessions as clinically appropriate. Risks/benefits/alternatives were reviewed re: her current medications. Will continue current meds (lamictal, lithium, Wellbutrin) with understanding that would benefit from modified loading procotol of Neurontin 600 mg TID (hold for excessive sedation) and consideration for Revia further into stay. She seemed ambivalent re: the latter. Cowles level is still pending but likely to be subtherapeutic given total daily dose. Dose had been higher in the past but doctor reportedly agreed to decrease due to tremor. The patient's AUDIT score suggests problematic drinking (Zone III WHO). Brief intervention was offered and accepted. Intervention was greater than 5 min in length and included assessing readiness to quit, advice on how to reduce or abstain from alcohol, and to set a specific goal for this hospitalization. fuller brush worker will also assist in anticipating barriers to sobriety and in problem-solving for solutions to those problems while arranging for referral to appropriate treatment. The patient is in contemplation stage with regards to transtheoretical model of change. The patient is advised to decrease alcohol consumption due to depressant effects and risk of interaction with prescription medications. 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 Chief Complaint "I feel nothing, like I just don't care". Review of Systems Sleep Information Total Hours of Sleep: 8.25 Sleep Comments: pt on q-15 minute checks Meal Information Percent Meal Consumed - Breakfast: 100 Percent Meal Consumed - Lunch: 50 Percent Meal Consumed - Dinner: 100 Subjective Subjective Patient was seen & assessed and interval progress reviewed with treatment team nursing and social work. Continues to endorse depressed mood with sense of "nothing" and not caring. Reviewed medication options to continue to target depression symptoms. Motivational interviewing regarding alcohol use, she rates herself as 7/10 motivation to reduce her drinking (10 being 100% motivated to cut down on use, 0 being none at all). Discussed strategies to help her acheive this goal. Feels tired. Physical Exam Psychiatric Orientation: alert and oriented x 3 Apperance: appropriately dressed and appropriately groomed Eye Contact: good eye contact Motor Behavior: no abnormal motor movements Speech: normal rate/rhythm/volume of speech Affect: + depressed affect Mood: + depressed mood Thought Process: goal directed thought process Thought Content: reality based without delusions Suicidal Thoughts: denies suicidal plan (on unit) and denies suicidal intent; + reports suicidal thoughts (more passive/intermittent) Homicidal Thoughts: denies homicidal thoughts Hallucinations: no auditory hallucinations and no visual hallucinations Cognition: attention grossly intact and language grossly intact Estimated Intelligence: consistent with education level Insight: + limited insight Judgement: + limited judgement Vital Signs (Past 24 Hours) Last Vital Signs Temp 37.0 C 12/24/21 06:44 Pulse 88 12/24/21 06:45 Resp 18 12/24/21 06:44 BP 118/80 12/24/21 06:45 Pulse Ox 98 12/23/21 18:11 O2 Del Method 12/23/21 13:57 Results & Data ([facility]) Current Inpatient Medications Current Inpatient Medications: Current Inpatient Medications Acetaminophen (Acetaminophen 325 Mg Tab) 650 mg PO Q4H PRN PRN Reason: Headache or Minor Fever Stop: 01/19/22 20:30 Last Admin: 12/23/21 14:05 Dose: 650 mg Al Hydrox/Mg Hydrox/Simethicone (Aluminum/Magnesium Susp 30 Ml Udc) 30 ml PO Q4H PRN PRN Reason: GI Upset Stop: 01/19/22 20:30 Bismuth Subsalicylate (Bismuth Subsalicylate Liqd 236 Ml) 15 ml PO PRN PRN PRN Reason: Loose Stool Stop: 01/19/22 20:30 Bupropion HCl (Bupropion Xl 150 Mg Tabcr) 450 mg PO QAM CHERYLE Stop: 01/24/22 08:59 Gabapentin (Gabapentin 400 Mg Cap) 400 mg PO TID CHERYLE Stop: 01/23/22 13:59 Last Admin: 12/24/21 14:16 Dose: 400 mg Hydroxyzine HCl (Hydroxyzine Hcl 25 Mg Tab) 50 mg PO HSZ PRN PRN Reason: Insomnia Stop: 01/19/22 20:30 Hydroxyzine HCl (Hydroxyzine Hcl 25 Mg Tab) 25 mg PO Q4H PRN PRN Reason: Anxiety Stop: 01/19/22 20:30 Last Admin: 12/23/21 14:05 Dose: 25 mg Lamotrigine (Lamotrigine 100 Mg Tab) 200 mg PO DAILY CHERYLE Stop: 01/20/22 09:14 Last Admin: 12/24/21 09:05 Dose: 200 mg Cowles Carbonate (Cowles Carbonate 450 Mg Tabcr) 450 mg PO HS CHERYLE Stop: 01/20/22 21:59 Last Admin: 12/23/21 21:22 Dose: 450 mg Cowles Carbonate (Cowles Carbonate 300 Mg Tab) 150 mg PO QAM CHERYLE Stop: 01/21/22 12:59 Last Admin: 12/24/21 09:04 Dose: 150 mg Lorazepam (Lorazepam 1 Mg Tab) 1 mg PO UD PRN; Protocol PRN Reason: EtOH Withdrawal AWSS Score 6,7 Stop: 01/19/22 21:57 Lorazepam (Lorazepam 1 Mg Tab) 3 mg PO ONCE PRN; Protocol PRN Reason: EtOH Withdrawal AWSS Score 10 & above Lorazepam (Lorazepam 1 Mg Tab) 2 mg PO UD PRN; Protocol PRN Reason: EtOH Withdrawal AWSS Score 8,9 Stop: 01/19/22 21:57 Magnesium Hydroxide (Magnesium Hydroxide Susp 30 Ml Udc) 30 ml PO DAILY PRN PRN Reason: Constipation Stop: 01/19/22 20:30 Naltrexone HCl (Naltrexone Hcl 50 Mg Tab) 100 mg PO DAILY CHERYLE Stop: 01/24/22 08:59 Sodium Chloride (Sodium Chloride 0.65% Na Soln 45 Ml ([place])) 1 - 2 sprays NA PRN PRN PRN Reason: Nasal Dryness/Congestion Stop: 01/19/22 20:30 Valbenazine (Valbenazine Tosylate 1 Each) 1 each PO HS CHERYLE Stop: 01/21/22 21:59 Last Admin: 12/23/21 21:23 Dose: 1 each Vitamin D (Cholecalciferol 5,000 Units 125 Mcg Tab) 5,000 units PO DAILY CHERYLE Stop: 01/20/22 08:59 Last Admin: 12/24/21 09:05 Dose: 5,000 units Mental Health & Subst Abuse Tx Psychiatrist Name of Psychiatrist: [facility]- Dr. Caur Psychiatrist's Date of Appointment with Psychiatrist: 01/16/22 Time of Appointment with Psychiatrist: 8:50am Psychiatric Appointment Comment: virtual Therapist Name of Therapist: [facility] Date of Therapist Appointment: 01/03/22 Time of Therapist Appointment: 4pm Therapy Appointment Comment: [address], [address] [place], [place] Grain Origination Specialist Name of Grain Origination Specialist: None Post Discharge Appointments Primary Care Physician Name Of Family Doctor: Mehul Kowalski Provider Appointment Comment: follow up as needed Contact Information Discharge Discharge Address: [address] [place] [address], [place] [address]
[2021-12-24] MEDS: hydrOXYzine HCl 25 MG TAB PO PRN (17:45)
[2021-12-24] MEDS: VALBENAZINE TOSYLATE PO SCH (21:22)
[2021-12-24] MEDS: LITHIUM CARBONATE 450 MG TABCR PO SCH (21:23)
[2021-12-24 23:26] LABS: MDA negative; MDEA negative; MDMA (Ecstasy) Urine, Confirm negative
[2021-12-25] MEDS: LITHIUM CARBONATE 300 MG TAB PO SCH (08:57)
[2021-12-25] MEDS: CHOLECALCIFEROL 5,000 UNITS 125 MCG TAB PO SCH (08:57)
[2021-12-25] MEDS: buPROPion XL 150 MG TABCR PO SCH (08:57)
[2021-12-25] MEDS: NALTREXONE HCL 50 MG TAB PO SCH (08:58)
[2021-12-25] MEDS: GABAPENTIN 400 MG CAP PO SCH (08:58)
[2021-12-25] MEDS: lamoTRIgine 100 MG TAB PO SCH (08:59)
--- NOTE | 2021-12-25 09:13 | Psychiatric Progress Note ---
Date of Service December 25, 2021 Impression / Recommendations Impression 31 yo female with hx of prior suicide attempt, mood lability with excessive alcohol use consistent with bipolar disorder, with presentation complicated by Tourette's with some associated anxiety/OCD traits. She is currently depressed and at significant risk of alcohol withdrawal (AUDIT score 30, scored on AWSS). She has no hx of seizures or withdrawal delirium. 12/25/21: Increased cravings for alcohol yesterday which lead to worsening of depression and anxiety. Mood improving today. Reviewed other behavioral coping skills to reduce stress and help with mood including gentle/restorative yoga which she agrees to try. Tolerating medication changes. Continue with gabapentin taper to discontinuation. (1) Bipolar disorder with severe depression: (2) Bipolar 2 disorder: (3) Alcohol use disorder: (4) Tourettes disorder: Plan 12/25/21: Decrease gabapentin to 200mg TID. Continue with current medications and tx plan. 12/24/21: Increase Wellbutrin XL to 450mg qd, increase naltrexone to 100mg qd, decrease gabapentin to 400mg TID 12/23/21: continue current meds and tx plan, family meeting with mother. 12/22/21: The patient agrees to trial of Revia following rehab discussion. Needs time to think about the latter. Discussion included but not limited to need for liver monitoring, etc. Agreed to partial titration of lithium and states that she did do better mood cavazos on higher dose and "I don't care about tremor" right now. Reviewed that tremor is typically treatable with beta julieta but may have also been withdrawal. No evidence of sedation with Neurontin but feels that Ingrezza should be at hs. 12/21/21: The patient was admitted to the [facility] ([facility] unit) on q15 min checks (behavioral with suicide precautions) for safety. The patient will participate in group, recreational, and milieu therapies and will be offered additional individual and family sessions as clinically appropriate. Risks/benefits/alternatives were reviewed re: her current medications. Will continue current meds (lamictal, lithium, Wellbutrin) with understanding that would benefit from modified loading procotol of Neurontin 600 mg TID (hold for excessive sedation) and consideration for Revia further into stay. She seemed ambivalent re: the latter. [place] level is still pending but likely to be subtherapeutic given total daily dose. Dose had been higher in the past but doctor reportedly agreed to decrease due to tremor. The patient's AUDIT score suggests problematic drinking (Zone III WHO). Brief intervention was offered and accepted. Intervention was greater than 5 min in length and included assessing readiness to quit, advice on how to reduce or abstain from alcohol, and to set a specific goal for this hospitalization. wet room worker will also assist in anticipating barriers to sobriety and in problem-solving for solutions to those problems while arranging for referral to appropriate treatment. The patient is in contemplation stage with regards to transtheoretical model of change. The patient is advised to decrease alcohol consumption due to depressant effects and risk of interaction with prescription medications. 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 Chief Complaint "I'm alright". Review of Systems Sleep Information Total Hours of Sleep: 7.5 Sleep Comments: pt on q-15 minute checks Meal Information Percent Meal Consumed - Breakfast: 100 Percent Meal Consumed - Lunch: 50 Percent Meal Consumed - Dinner: 100 Subjective Subjective Patient was seen & assessed and interval progress reviewed with treatment team nursing and social work. Lots of environment cues that triggering alcohol cravings while watching football game yesterday. Reviewed strategies to cope with cravings and alternative coping mechanisms. No side effects from medication adjustments. Physical Exam Psychiatric Orientation: alert and oriented x 3 Apperance: appropriately dressed and appropriately groomed Eye Contact: good eye contact Motor Behavior: no abnormal motor movements Speech: normal rate/rhythm/volume of speech Affect: + depressed affect Mood: + depressed mood and + anxious mood Thought Process: goal directed thought process Thought Content: reality based without delusions Suicidal Thoughts: denies suicidal thoughts, denies suicidal plan and denies suicidal intent Homicidal Thoughts: denies homicidal thoughts Hallucinations: no auditory hallucinations and no visual hallucinations Cognition: attention grossly intact and language grossly intact Estimated Intelligence: consistent with education level Insight: + fair insight Judgement: + fair judgement Vital Signs (Past 24 Hours) Last Vital Signs Temp 37.0 C 12/25/21 06:44 Pulse 76 12/25/21 06:45 Resp 18 12/25/21 06:44 BP 114/78 12/25/21 06:45 Pulse Ox 98 12/23/21 18:11 O2 Del Method 12/23/21 13:57 Results & Data ([facility]) Laboratory Results Laboratory Results - last 24 hr 12/20/21 17:33 Urine MDEA negative MDMA negative Urine MDMA negative Current Inpatient Medications Current Inpatient Medications: Current Inpatient Medications Acetaminophen (Acetaminophen 325 Mg Tab) 650 mg PO Q4H PRN PRN Reason: Headache or Minor Fever Stop: 01/19/22 20:30 Last Admin: 12/23/21 14:05 Dose: 650 mg Al Hydrox/Mg Hydrox/Simethicone (Aluminum/Magnesium Susp 30 Ml Udc) 30 ml PO Q4H PRN PRN Reason: GI Upset Stop: 01/19/22 20:30 Bismuth Subsalicylate (Bismuth Subsalicylate Liqd 236 Ml) 15 ml PO PRN PRN PRN Reason: Loose Stool Stop: 01/19/22 20:30 Bupropion HCl (Bupropion Xl 150 Mg Tabcr) 450 mg PO QAM CHERYLE Stop: 01/24/22 08:59 Last Admin: 12/25/21 08:57 Dose: 450 mg Gabapentin (Gabapentin 400 Mg Cap) 400 mg PO TID CHERYLE Stop: 01/23/22 13:59 Last Admin: 12/25/21 08:58 Dose: 400 mg Hydroxyzine HCl (Hydroxyzine Hcl 25 Mg Tab) 50 mg PO HSZ PRN PRN Reason: Insomnia Stop: 01/19/22 20:30 Hydroxyzine HCl (Hydroxyzine Hcl 25 Mg Tab) 25 mg PO Q4H PRN PRN Reason: Anxiety Stop: 01/19/22 20:30 Last Admin: 12/24/21 17:45 Dose: 25 mg Lamotrigine (Lamotrigine 100 Mg Tab) 200 mg PO DAILY CHERYLE Stop: 01/20/22 09:14 Last Admin: 12/25/21 08:59 Dose: 200 mg [place] Carbonate (Stoneridge Carbonate 450 Mg Tabcr) 450 mg PO HS CHERYLE Stop: 01/20/22 21:59 Last Admin: 12/24/21 21:23 Dose: 450 mg [place] Carbonate (Stoneridge Carbonate 300 Mg Tab) 150 mg PO QAM CHERYLE Stop: 01/21/22 12:59 Last Admin: 12/25/21 08:57 Dose: 150 mg Lorazepam (Lorazepam 1 Mg Tab) 1 mg PO UD PRN; Protocol PRN Reason: EtOH Withdrawal AWSS Score 6,7 Stop: 01/19/22 21:57 Lorazepam (Lorazepam 1 Mg Tab) 3 mg PO ONCE PRN; Protocol PRN Reason: EtOH Withdrawal AWSS Score 10 & above Lorazepam (Lorazepam 1 Mg Tab) 2 mg PO UD PRN; Protocol PRN Reason: EtOH Withdrawal AWSS Score 8,9 Stop: 01/19/22 21:57 Magnesium Hydroxide (Magnesium Hydroxide Susp 30 Ml Udc) 30 ml PO DAILY PRN PRN Reason: Constipation Stop: 01/19/22 20:30 Naltrexone HCl (Naltrexone Hcl 50 Mg Tab) 100 mg PO DAILY CHERYLE Stop: 01/24/22 08:59 Last Admin: 12/25/21 08:58 Dose: 100 mg Sodium Chloride (Sodium Chloride 0.65% Na Soln 45 Ml ([place])) 1 - 2 sprays NA PRN PRN PRN Reason: Nasal Dryness/Congestion Stop: 01/19/22 20:30 Valbenazine (Valbenazine Tosylate 1 Each) 1 each PO HS CHERYLE Stop: 01/21/22 21:59 Last Admin: 12/24/21 21:22 Dose: 1 each Vitamin D (Cholecalciferol 5,000 Units 125 Mcg Tab) 5,000 units PO DAILY CHERYLE Stop: 01/20/22 08:59 Last Admin: 12/25/21 08:57 Dose: 5,000 units Mental Health & Subst Abuse Tx Psychiatrist Name of Psychiatrist: [facility]- Dr. Luna Psychiatrist's Date of Appointment with Psychiatrist: 01/16/22 Time of Appointment with Psychiatrist: 8:50am Psychiatric Appointment Comment: virtual Therapist Name of Therapist: [facility] Therapist's Date of Therapist Appointment: 01/03/22 Time of Therapist Appointment: 4pm Therapy Appointment Comment: [address], [address] [place], [place] Clinical Data Research Name of Clinical Data Research: None Post Discharge Appointments Primary Care Physician Name Of Family Doctor: Mehul Kowalski Provider Appointment Comment: follow up as needed Contact Information Discharge Discharge Address: [address] [place] [address], [place] [address]
[2021-12-25] MEDS: GABAPENTIN 100 MG CAP PO SCH ×2 (15:11→22:16)
[2021-12-25] MEDS: LITHIUM CARBONATE 450 MG TABCR PO SCH (22:16)
[2021-12-25] MEDS: VALBENAZINE TOSYLATE PO SCH (22:16)
[2021-12-26] MEDS: GABAPENTIN 100 MG CAP PO SCH (09:05)
[2021-12-26] MEDS: CHOLECALCIFEROL 5,000 UNITS 125 MCG TAB PO SCH (09:05)
[2021-12-26] MEDS: buPROPion XL 150 MG TABCR PO SCH (09:05)
[2021-12-26] MEDS: lamoTRIgine 100 MG TAB PO SCH (09:06)
[2021-12-26] MEDS: LITHIUM CARBONATE 300 MG TAB PO SCH (09:06)
[2021-12-26] MEDS: NALTREXONE HCL 50 MG TAB PO SCH (09:07)
--- NOTE | 2021-12-26 10:22 | Discharge Summary ---
Date of Service December 26, 2021 History of Present Illness Patient states that her stress has been increasing over past few weeks following a "great summer". She went from a positive outlook and visiting friends in [place] to a new elementary school. 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 She is attending work and stays until her grading/prep is finished for separation between home and school but also as she drinks heavily outside of work. She reported this time of year drinking at least 30 beers a week with additional shots on weekends, always having 8 beers plus per football game she is watching. She is now drinking "at least" 3-4 beers on weeknights. She is not particularly interested in abstaining from ETOH all together but adds that would like to cut back as knows it fuels her depression, interferes with sleep and weight loss. She minimizes any impact on her work/focus but had to leave work early yesterday due to seek assessment. She drinks at [employer] or often by herself. She struggles to manage her suicidal thoughts outside of the structure of work and just felt like "everything is going downhill fast" and sought treatment before acting on any thoughts to OD. She is aware that her lithium can be dangerous in OD. She feels her medications have "done OK" for her mood but also that "I can have good days and bad days on or off medication." She is interested in estabilishing with a local provider. She denies any recent manic symptoms. She states that she was diagnosed with bipolar disorder in 2018 as she was drinking heavily and "very" sexually active soon after a break-up and relocation out of state "to a place I didn't know anyone" within like 2 weeks of the engagement ending. She denied any hx of psychosis or significant insomnia, etc. it sounds like her alcohol use may have been higher in the past as her longest period of sobriety was 2 months in 2019 when she was prescribed Antabuse. She is prescribed Ingrezza for Tourette's, mainly throat/face jerking, hx of grunting/throat clear. She reports having some associated OCD--radio needs set at certain levels in the car, harder to redirect intrusive thoughts. Physical Exam Vital Signs (Past 24 Hours) Last Vital Signs Temp 36.9 C 10/31/22 10:19 Pulse 90 12/26/21 10:19 Resp 16 12/26/21 10:19 BP 116/77 12/26/21 10:19 Pulse Ox 98 12/26/21 10:19 O2 Del Method 12/23/21 13:57 See admission H&P and DOD summary. Principal Diagnosis Bipolar Affective Disorder type II, current depressive episode Psychiatric Data See daily stay summary. In short, patient was engaged with the social/therapeutic milieu of the unit, safety was maintained and the patient was cooperative with care. Medication changes included increase of Newborn to 150mg qAM while continuing 450mg qhs for mood stabilization as well as increase of Wellbutrin XL to 450mg qd to target depression as well as Gabapentin taper for alcohol use disorder as well as naltrexone 100mg qd for alcohol use disorder as well as Vistaril for anxiety and they tolerated this well. Newborn level on admission was 0.5 mmol/L. Repeat Li level recommended on 12/29/2021 at discretion of her outpatient psychiatrist, she feels comfortable with this plan and will reach out to her provider to get level done as she typically does so that any necessary adjustments can be made if it is high. Reviewed importance of routine monitoring of AST and ALT given initiation of naltrexone which she understands. She engaged with motivational interviewing regarding her alcohol use and wants to reduce her use and identified strategies to do so including drinking more soda if out at bars and trying gentle or restorative yoga after work to relax and reduce dependence on alcohol. Reviewed mobile apps that could be used for additional ways to have their safety plan and contacts easily available should thoughts of SI re-emerge in the future. Reviewed importance of seeking emergency care should SI intensify, worsen or should they feel unsafe in the future which they agree to do. On the day of discharge she stated her mood was "excited" and "I feel good now" and remained future-oriented including spending time with her mom, getting back into her normal routine, returning to work, going to medical appointment, starting IOP substance use groups at [facility] in the evenings and engaging in aftercare appointments for psychiatry and therapy. Day of Discharge Assessment Today the patient voices readiness for discharge. They note improvement in mood and anxiety. They deny thoughts of harm to self or others. Thoughts are organized and they are clinically improved from admission. There is no evidence of psychosis. They improved in the hospital with support and medication adjustments. They agree to take medications as prescribed and keep follow-up appointments. At the time of the discharge they are deemed to be stable and appropriate for outpatient level of care. They are not deemed to be at imminent risk of harm to self or others. They are aware of emergency and crisis services. Knows to call 911 or go to nearest emergency care center if in a crisis which cannot be handled as an outpatient. Transition of Care Transition Of Care Record: was reviewed with the patient Advance Directives Advance Directives Information Provided: No Advance Directives: No Mental Health Advance Directive: No Advance Directives on File: No Living Will: No Power of Vacuum Cleaner Mechanic: No Advance Directives Reason:: Declines as Mental Health Visit. Suicide Risk Level Suicide Risk Level Comments: Acute risk is low given improvement in mood and denial of SI, lack of access to lethal means, plan to reduce substance use, improvement in sleep, hopefulness. Chronic risk is moderate given some non-modifiable risk factors including psychiatric co-morbid diagnoses, periods of impulsivity, prior attempt, emotional reactivity, prior psychiatric hospitalizations, mood disorder and alcohol use but also with protective factors. Counseled on ways to reduce acute and chronic risk including engaging with outpatient providers, using safety plan if needed, utilizing supports, taking medication, reducing alcohol use and ideally avoiding use and using coping skills. Modifiable risk factors of SI and depression were addressed during hospitalization through development of new coping skills, family meeting, safety planning, and medication adjustments. 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[employer]) Supportive Family: Yes Tobacco Cessation at Discharge Tobacco Cessation Medication Prescribed at Discharge: Not Applicable/Non-Smoker Discharge Data Lab Results 12/20/21 12/20/21 12/20/21 17:30 17:30 17:30 WBC RBC Hgb Hct MCV MCH MCHC RDW Std Deviation RDW Coeff of Dada Plt Count MPV Immature Gran % (Auto) Neut % (Auto) Lymph % (Auto) Tift % (Auto) Eos % (Auto) Baso % (Auto) Neut # (Auto) Lymph # (Auto) Tift # (Auto) Eos # (Auto) Baso # (Auto) Immature Gran # (Auto) Sodium Potassium Chloride Carbon Dioxide Anion Gap BUN Creatinine Est Cr Clr Drug Dosing Est GFR ( Amer) Est GFR (Non-Af Amer) BUN/Creatinine Ratio Glucose Fasting Glucose Calcium Total Bilirubin AST ALT Alkaline Phosphatase Total Protein Albumin Globulin Albumin/Globulin Ratio Triglycerides Cholesterol LDL Cholesterol, Calc VLDL Cholesterol, Calc HDL Cholesterol Cholesterol/HDL Ratio TSH Urine Color Yellow Urine Appearance Clear Urine pH 6.0 Ur Specific Dazey 1.012 Urine Protein Negative Urine Glucose (UA) Negative Urine Ketones Negative Urine Blood Negative Urine Nitrite Negative Urine Bilirubin Negative Urine Urobilinogen Negative Ur Leukocyte Esterase Negative POC Ur Test NEG Salicylates Urine Opiates Screen Ur Methadone, Qual Acetaminophen Urine Barbiturates Ur Phencyclidine (PCP) U Amphetamin/Meth Scrn Urine MDEA MDMA (Ecstasy) Screen MDMA Urine MDMA U Benzodiazepines Scrn Newborn Ur Cocaine Metabolite U Marijuana (THC) Screen Ethyl Alcohol mg/dL SARS-CoV-2, RNA, NAAT NEGATIVE 12/20/21 12/20/21 12/20/21 17:33 17:33 17:37 WBC RBC Hgb Hct MCV MCH MCHC RDW Std Deviation RDW Coeff of Dada Plt Count MPV Immature Gran % (Auto) Neut % (Auto) Lymph % (Auto) Tift % (Auto) Eos % (Auto) Baso % (Auto) Neut # (Auto) Lymph # (Auto) Tift # (Auto) Eos # (Auto) Baso # (Auto) Immature Gran # (Auto) Sodium Potassium Chloride Carbon Dioxide Anion Gap BUN Creatinine Est Cr Clr Drug Dosing Est GFR ( Amer) Est GFR (Non-Af Amer) BUN/Creatinine Ratio Glucose Fasting Glucose Calcium Total Bilirubin AST ALT Alkaline Phosphatase Total Protein Albumin Globulin Albumin/Globulin Ratio Triglycerides Cholesterol LDL Cholesterol, Calc VLDL Cholesterol, Calc HDL Cholesterol Cholesterol/HDL Ratio TSH Urine Color Urine Appearance Urine pH Ur Specific Dazey Urine Protein Urine Glucose (UA) Urine Ketones Urine Blood Urine Nitrite Urine Bilirubin Urine Urobilinogen Ur Leukocyte Esterase POC Ur Test Salicylates Urine Opiates Screen Neg Ur Methadone, Qual Neg Acetaminophen Urine Barbiturates Neg Ur Phencyclidine (PCP) Neg U Amphetamin/Meth Scrn Neg Urine MDEA negative MDMA (Ecstasy) Screen Pos H MDMA negative Urine MDMA negative U Benzodiazepines Scrn Neg Newborn Ur Cocaine Metabolite Neg U Marijuana (THC) Screen Neg Ethyl Alcohol mg/dL < 10.0 SARS-CoV-2, RNA, NAAT 12/20/21 12/20/21 12/20/21 17:40 17:40 17:40 WBC 8.97 RBC 5.07 Hgb 15.3 Hct 45.1 H MCV 89.0 MCH 30.2 MCHC 33.9 RDW Std Deviation 39.9 RDW Coeff of Dada 12.3 Plt Count 339 MPV 9.4 Immature Gran % (Auto) 0.9 Neut % (Auto) 74.0 Lymph % (Auto) 18.8 Tift % (Auto) 4.5 Eos % (Auto) 1.1 Baso % (Auto) 0.7 Neut # (Auto) 6.64 H Lymph # (Auto) 1.69 Tift # (Auto) 0.40 Eos # (Auto) 0.10 Baso # (Auto) 0.06 Immature Gran # (Auto) 0.08 H Sodium 140 Potassium 3.7 Chloride 108 H Carbon Dioxide 23 Anion Gap 9 BUN 9 Creatinine 1.09 Est Cr Clr Drug Dosing 78.7 Est GFR ( Amer) 78.9 Est GFR (Non-Af Amer) 68.1 BUN/Creatinine Ratio 8.3 L Glucose 95 Fasting Glucose Calcium 9.6 Total Bilirubin 0.5 AST 16 ALT 14 Alkaline Phosphatase 91 Total Protein 7.5 Albumin 4.8 Globulin 2.7 Albumin/Globulin Ratio 1.8 Triglycerides Cholesterol LDL Cholesterol, Calc VLDL Cholesterol, Calc HDL Cholesterol Cholesterol/HDL Ratio TSH 3.303 Urine Color Urine Appearance Urine pH Ur Specific Dazey Urine Protein Urine Glucose (UA) Urine Ketones Urine Blood Urine Nitrite Urine Bilirubin Urine Urobilinogen Ur Leukocyte Esterase POC Ur Test Salicylates Urine Opiates Screen Ur Methadone, Qual Acetaminophen Urine Barbiturates Ur Phencyclidine (PCP) U Amphetamin/Meth Scrn Urine MDEA MDMA (Ecstasy) Screen MDMA Urine MDMA U Benzodiazepines Scrn Newborn Ur Cocaine Metabolite U Marijuana (THC) Screen Ethyl Alcohol mg/dL SARS-CoV-2, RNA, NAAT 12/20/21 12/21/21 12/21/21 17:40 10:25 10:25 WBC RBC Hgb Hct MCV MCH MCHC RDW Std Deviation RDW Coeff of Dada Plt Count MPV Immature Gran % (Auto) Neut % (Auto) Lymph % (Auto) Tift % (Auto) Eos % (Auto) Baso % (Auto) Neut # (Auto) Lymph # (Auto) Tift # (Auto) Eos # (Auto) Baso # (Auto) Immature Gran # (Auto) Sodium Potassium Chloride Carbon Dioxide Anion Gap BUN Creatinine Est Cr Clr Drug Dosing Est GFR ( Amer) Est GFR (Non-Af Amer) BUN/Creatinine Ratio Glucose Fasting Glucose 85 Calcium Total Bilirubin AST ALT Alkaline Phosphatase Total Protein Albumin Globulin Albumin/Globulin Ratio Triglycerides 92 Cholesterol 231 H LDL Cholesterol, Calc 151 VLDL Cholesterol, Calc 18 HDL Cholesterol 62 Cholesterol/HDL Ratio 3.7 TSH Urine Color Urine Appearance Urine pH Ur Specific Dazey Urine Protein Urine Glucose (UA) Urine Ketones Urine Blood Urine Nitrite Urine Bilirubin Urine Urobilinogen Ur Leukocyte Esterase POC Ur Test Salicylates < 3.0 L Urine Opiates Screen Ur Methadone, Qual Acetaminophen < 3 L Urine Barbiturates Ur Phencyclidine (PCP) U Amphetamin/Meth Scrn Urine MDEA MDMA (Ecstasy) Screen MDMA Urine MDMA U Benzodiazepines Scrn Newborn 0.5 L Ur Cocaine Metabolite U Marijuana (THC) Screen Ethyl Alcohol mg/dL SARS-CoV-2, RNA, NAAT Hospital Course (1) Bipolar disorder with severe depression: (2) Bipolar 2 disorder: (3) Alcohol use disorder: (4) Tourettes disorder: Plan 12/25/21: Decrease gabapentin to 200mg TID. Continue with current medications and tx plan. 12/24/21: Increase Wellbutrin XL to 450mg qd, increase naltrexone to 100mg qd, decrease gabapentin to 400mg TID 12/23/21: continue current meds and tx plan, family meeting with mother. 12/22/21: The patient agrees to trial of Revia following rehab discussion. Needs time to think about the latter. Discussion included but not limited to need for liver monitoring, etc. Agreed to partial titration of lithium and states that she did do better mood cavazos on higher dose and "I don't care about tremor" right now. Reviewed that tremor is typically treatable with beta julieta but may have also been withdrawal. No evidence of sedation with Neurontin but feels that Ingrezza should be at hs. 12/21/21: The patient was admitted to the [facility] ([facility] unit) on q15 min checks (behavioral with suicide precautions) for safety. The patient will participate in group, recreational, and milieu therapies and will be offered additional individual and family sessions as clinically appropriate. Risks/benefits/alternatives were reviewed re: her current medications. Will continue current meds (lamictal, lithium, Wellbutrin) with understanding that would benefit from modified loading procotol of Neurontin 600 mg TID (hold for excessive sedation) and consideration for Revia further into stay. She seemed ambivalent re: the latter. Newborn level is still pending but likely to be subtherapeutic given total daily dose. Dose had been higher in the past but doctor reportedly agreed to decrease due to tremor. The patient's AUDIT score suggests problematic drinking (Zone III WHO). Brief intervention was offered and accepted. Intervention was greater than 5 min in length and included assessing readiness to quit, advice on how to reduce or abstain from alcohol, and to set a specific goal for this hospitalization. milking worker will also assist in anticipating barriers to sobriety and in problem-solving for solutions to those problems while arranging for referral to appropriate treatment. The patient is in contemplation stage with regards to transtheoretical model of change. The patient is advised to decrease alcohol consumption due to depressant effects and risk of interaction with prescription medications. Mental Health & Subst Abuse Tx Psychiatrist Name of Psychiatrist: [facility]- Dr. Luna Psychiatrist's Date of Appointment with Psychiatrist: 01/16/22 Time of Appointment with Psychiatrist: 8:50am Psychiatric Appointment Comment: virtual Psychiatrist Release of Information: Obtained Therapist Name of Therapist: [facility] Date of Therapist Appointment: 01/03/22 Time of Therapist Appointment: 4pm Therapy Appointment Comment: [address], [address] [place], [place] Therapist Release of Information: Obtained, Reviewed and Signed Senior Hardware Engineer Name of Senior Hardware Engineer: None Post Discharge Appointments Primary Care Physician Name Of Family Doctor: Mehul Kowalski Provider Appointment Comment: follow up as needed Primary Care Release of Information: Obtained, Reviewed and Signed Smoking Cessation Counseling Tobacco Cessation Medication Prescribed at Discharge: Not Applicable/Non-Smoker Contact Information Discharge Discharge Address: [address] [place] [address], [place] [address] Discharge Plan Discharge Items Patient Disposition: Home - Self-Care Reason For Visit: SUICIDAL IDEATION Discharge Diagnosis: Bipolar Disorder depressive episode Activity: Resume your previous activity Non-emergency contact: Primary Care Provider, Psychiatrist and Therapist Call non-emergency contact if: you have any medication questions and your symptoms worsen Follow-up/Referrals: Aydin Kowalski MD [Primary Care Provider] - Diet: Regular Addtl Attending Provider Instructions: Optional mobile we discussed: -Suicide safety plan -Virtual Hope Box SPECIAL CARE INSTRUCTIONS: 1. Follow through with your scheduled aftercare appointments. If unable to keep an appointment, please call to reschedule. 2. Take your medication only as prescribed. Medication should not be changed or stopped without the approval of your doctor. In the event of worsening symptoms or concerns about side effects, contact your doctor immediately. 3. Utilize new healthy coping skills, anger management skills, and stress management skills learned during your hospitalization. Journal feelings and process them with a support person. Identify stressors or situations that may result in relapse, deterioration or inappropriate behaviors and develop a plan to deal with those issues. 4. If your coping skills are ineffective and you are in crisis, contact your outpatient providers for direction. If unable to reach your providers, please call the [facility] CRISIS LINE AT , go to the [facility] walk-in center at [address], [address], [place], or go to the closest Emergency Room. 5. Avoid alcohol and un-prescribed drugs. 6. You have been provided with the Mental Health Advance Directives Pamphlet for your review. 7. Your condition is stable for discharge to outpatient level of care, but recovery is an ongoing process. Ifthoughts to harm yourself or others return, follow the safety plan developed during your stay. Planning for a safe return home includes securing weapons. Our treatment team recommends weaponsbe removed from the home until your outpatient provider reassesses your progress. In rare cases where the items themselvescannot be removed, guns and ammunitionshould be secured separatelyand keys stored by a reliable personoutside of the home. If you were admitted on an involuntary commitment, the police or other legal authorities may be involved in this process. AFTERCARE APPOINTMENTS: * Please call your insurance company prior to your scheduled appointment to confirm your aftercare providers are covered. Take your insurance information to your appointments. WHO TO CALL AND WHEN: Medical Emergencies: For questions or emergencies related to your hospital stay, please contact the Inpatient Behavioral Health Unit at [phone]. A obstetrics nurse is on-call 18/09 for the Behavioral Health Unit for emergencies At any time you feel your situation is an emergency, you may also call 911 immediately. Pending Studies at Discharge: No Stand-Alone Forms: My [facility] Medications and DC Order Prescriptions: New naltrexone 50 mg Tablet 100 mg PO DAILY 30 Days Qty: 60 0RF lithium carbonate 450 mg Tablet Extended Release 450 mg PO HS 30 Days Qty: 30 0RF hydroxyzine HCl 25 mg Tablet 25 mg PO BID PRN (Reason: anxiety/insomnia) 30 Days Qty: 60 0RF gabapentin 100 mg Capsule 200 mg PO BID 2 Days Qty: 5 0RF Rx Instructions: Take 200mg twice daily for one day and then reduce to 200mg once in the morning on 12/27/2021 and then discontinue on 12/28/2021 bupropion HCl 150 mg tablet extended release 24 hr 450 mg PO DAILY 30 Days Qty: 90 0RF lamotrigine 200 mg tablet 200 mg PO DAILY 30 Days Qty: 30 0RF lithium carbonate 150 mg capsule 150 mg PO DAILY 30 Days Qty: 30 0RF Continued valbenazine 80 mg Capsule 80 mg PO DAILY budesonide-formoterol [Symbicort] 80-4.5 mcg/actuation Hfa Aerosol Inhaler 2 puff INHALATION BID PRN (Reason: Shortness Of Breath Or Wheezing) cholecalciferol (vitamin D3) [Vitamin D3] 125 mcg (5,000 unit) Tablet 125 mcg PO DAILY Discontinued bupropion HCl [Wellbutrin XL] 300 mg Tablet Extended Release 24 Hr 300 mg PO QAM Discharge Orders: Discharge Order (Routine); Ordered 12/26/21 Ordered By: Keren Fletcher Admission Data Admit Date/Time: 12/20/21 20:32 Attending Provider: Masha Brooks Admit Provider: Masha Brooks Primary Care Provider: Aydin Kowalski Other Interventions: Discharge Summary Assessment (RN) Last Done: 12/26/21 10:19 PSY Interdisciplinary Discharge Planning Last Done: 12/26/21 11:01 Coding Level of Care Code 86388 D/C day mgmt > 30 min Diagnoses Bipolar disorder with severe depression F31.4 Bipolar 2 disorder F31.81 Alcohol use disorder Tourettes disorder F95.2 Time Spent (min) 40
== END 2021-12-26 12:05 | disposition home or self-care (01) | DRG 885 ==
LOC: ED 17:08 → 3S 20:32